=== PATIENT | female | born 1990 | race American Indian/Alaskan Native ===

== ENCOUNTER 2017-04-20 21:22 | Emergency (ER) | payer MEDICAID, OTHER ==
--- NOTE | 2017-04-20 21:57 | ED Physician Chart ---
Chief Complaint/HPI - Patient Information Date Seen:: 04/20/17 Time Seen:: 21:45 Chief Complaint:: Intermittent vaginal spotting for about one week. History of Present Illness:: female with LNMP 03/11/17. Pt had a positive test recently. Pt has noticed intermittent mild vaginal spotting for about one week. No definite pelvic pain or cramp. Pt came in by private auto and appears to be comfortable. No fever. Taking po well without vomiting. ?transient nausea. No lightheadedness. No vomiting. Allergies:: Allergies Allergy/AdvReac Type Severity Reaction Status Date / Time amoxicillin Allergy Verified 04/20/17 21:26 cephalexin Allergy Verified 04/20/17 21:26 Latex, Natural Rubber Allergy Verified 04/20/17 21:26 Vitals:: Vital Signs - 8 hr 04/20/17 21:27 Temp 99.2 F HR 78 RR 18 BP 114/71 O2 Sat % 100 Historian:: Patient Family MD/PCP:: Dr. Mesa LMP:: 03/11/17 Review:: Nurse's Note Reviewed Review of Systems - Review of Systems General/Constitutional: No fever, No chills, No weight loss, No weakness, No diaphoresis, No edema, No loss of appetite Skin: No skin lesions, No rash, No bruising Head: No headache, No light-headedness Eyes: No loss of vision, No pain, No diplopia ENT: No earache, No nasal drainage, No tinnitus Neck: No neck pain, No swelling, No stiffness, No mass noted Cardio Vascular: No chest pain, No palpitations, No edema Pulmonary: No SOB, No cough, No wheezing GI: Nausea (transient), No vomiting, No pain, No melena, No hematochezia, No hematemesis G/U: No dysuria, No frequency, No hematuria 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 Surgical History: other (L oophorectomy at . L breast cyst removal at age 17.Tonsillectomy at age 3.) Psychiatricy History: None Medication: Reviewed Family Medical History - Family Member Mother History Unknown: Yes Ethnicity: Living Status: Still Living Hx Family Hypertension: Yes Hx Family Stroke: Yes Hx Family Diabetes: Yes Physical Exam - Physical Examination General/Constitutional: Awake, Well-developed, well-nourished, Alert, No distress, GCS 15, Non-toxic appearing, Ambulatory Other Gen/Cons comments:: Breathes comfortably, speaks clearly, interacts normally, and ambulates without difficulty. Head: Atraumatic Eyes: Lids, conjuctiva normal, PERRL, EOMI Skin: Nl inspection, No rash, No skin lesions, No ecchymosis, Well hydrated, No lymphadenopathy ENMT: External ears, nose nl, TM canals nl, Nasal exam nl, Oropharynx nl Neck: Nontender, Full ROM w/o pain, No JVD, No nuchal rigidity, No mass, No stridor Respiratory: Nl effort/Exclusion, Clear to Auscultation, No Wheeze/Rhonchi/Rales Cardio Vascular: RRR, No murmur, gallop, rubs GI: No tenderness/rebounding/guarding, No organomegaly, No hernia, Normal BS's, Nondistended, No mass/bruits, No McBurney tenderness Other GI comments:: Abdomen is soft. : No CVA tenderness Other comments:: Pelvic exam: deferred per pt's request. Extremities: No tenderness or effusion, Full ROM, normal strength in all extremities, No edema, Normal digits & nails Other Extremities comments:: No calf tenderness or swelling. No erythema. Neuro/Psych: Alert/oriented (oriented x 3), Judgement/insight normal, Mood normal, Normal gait, No focal deficits Labs/Radiology/EKG Results - Lab Results Results: Laboratory Results - last 24 hr 04/20/17 04/20/17 04/20/17 21:35 22:20 22:20 WBC 6.3 RBC 4.52 Hgb 13.3 Hct 39.4 MCV 87.3 MCH 29.5 MCHC Differential 33.8 RDW 12.5 Plt Count 213 MPV 9.6 Neutrophils % 56.6 Lymphocytes % 35.7 Monocytes % 5.4 Eosinophils % 1.9 Basophils % 0.4 PT 10.3 INR 0.99 PTT (Actin FS) 23.4 L Sodium Potassium Chloride Carbon Dioxide Anion Gap BUN Creatinine Est GFR ( Amer) Est GFR (Non-Af Amer) BUN/Creatinine Ratio Glucose Calcium Total Bilirubin AST ALT Alkaline Phosphatase Total Protein Albumin Globulin Albumin/Globulin Ratio Beta HCG, Quant Urine Source [place] Urine Color YELLOW Urine Clarity CLEAR Urine pH 6.5 Ur Specific [place] 1.020 Urine Protein NEGATIVE Urine Glucose (UA) NEGATIVE Urine Ketones NEGATIVE Urine Blood SMALL H Urine Nitrate NEGATIVE Urine Bilirubin NEGATIVE Urine Urobilinogen 1.0 Ur Leukocyte Esterase NEGATIVE Urine RBC 0-2 Urine WBC 0-2 Ur Epithelial Cells MODERATE Urine Bacteria FEW Blood Type Antibody Screen 04/20/17 04/20/17 04/20/17 22:20 22:20 22:20 WBC RBC Hgb Hct MCV MCH MCHC Differential RDW Plt Count MPV Neutrophils % Lymphocytes % Monocytes % Eosinophils % Basophils % PT INR PTT (Actin FS) Sodium 137 Potassium 4.0 Chloride 108 H Carbon Dioxide 26.7 Anion Gap 6.3 L BUN 21 Creatinine 0.9 Est GFR ( Amer) > 60.0 Est GFR (Non-Af Amer) > 60.0 BUN/Creatinine Ratio 23.3 Glucose 90 Calcium 9.4 Total Bilirubin 0.3 AST 12 L ALT 10 Alkaline Phosphatase 60 Total Protein 6.8 Albumin 4.4 Globulin 2.4 Albumin/Globulin Ratio 1.8 Beta HCG, Quant < 1 Urine Source Urine Color Urine Clarity Urine pH Ur Specific [place] Urine Protein Urine Glucose (UA) Urine Ketones Urine Blood Urine Nitrate Urine Bilirubin Urine Urobilinogen Ur Leukocyte Esterase Urine RBC Urine WBC Ur Epithelial Cells Urine Bacteria Blood Type A NEGATIVE Antibody Screen NEGATIVE - Radiology Results Results: Pelvic sonogram (Preliminary report): R and L ovary not seen. L ovary removed. R ovary not seen. R and L adnexa with no ectopic gestation. ED Septic Shock - . Is Septic Shock (SBP<90, OR Lactate>4 mmol\L) present?: No - <6hrs of presentation: Vital Signs: Vital Signs - 8 hr 04/20/17 21:27 Temp 99.2 F HR 78 RR 18 BP 114/71 O2 Sat % 100 Reassessment (Disposition) - Reassessment Reassessment:: 1205 Pt remains stable. No new findings. 0225 Pt has been stable. No vaginal bleeding. No pelvic or abdominal pain. Pt has been ambulatory without difficulty. Preliminary report on pelvic sonogram just became available. Lab and sonographic findings have been reviewed with pt. Pt requests to go home now and does not want further observation/management in hospital. Aftercare instructions have been given. Reassessment Condition:: Improved - Diagnosis Diagnosis:: Recent vaginal spotting by hx, stable and currently asymptomatic. Doubt missed . - Aftercare/Follow up Instructions Aftercare/Follow-Up Instructions:: Refer to Discharge Instructions Notes:: Bedrest today. No sexual intercourse until further physician direction. F/U with PCP Dr. Mesa as well as [facility] physician referred by PCP Dr. Mesa tomorrow to follow on final sonographic report and further evaluation/ treatment. Return to ER immediately if condition worsens or if any further questions/problems. Medication Prescribed:: None - Patient Disposition Discharge/Transfer:: Home Time:: 02:40 Condition at Disposition:: Stable, Improved
[2017-04-20 22:27] LABS: % BASOPHILS 0.4 % (0.0-2.0); % EOSINOPHILS 1.9 % (0.0-5.0); % LYMPHOCYTES 35.7 % (20.0-50.0); % MONOCYTES 5.4 % (2.0-10.0); % NEUTROPHILS 56.6 % (40.0-80.0); HEMATOCRIT 39.4 % (35.0-45.0); HEMOGLOBIN 13.3 gm/dL (11.7-15.5); MEAN CELL VOLUME 87.3 fl (81-100); MEAN CORPUSCULAR HEMOGLOBIN 29.5 pg (27.0-31.0); MEAN CORPUSCULAR HGB CONC 33.8 pg (28.0-36.0); MEAN PLATELET VOLUME 9.6 fl; NEUTROPHILE ABSOLUTE 3.7 Th/cmm (1.8-8.0); PLATELET COUNT 213 Th/cmm (150-400); RED BLOOD COUNT 4.52 Mil/cmm (3.80-5.10); RED CELL DISTRIBUTION WIDTH 12.5 % (11.5-20.0); WHITE BLOOD COUNT 6.3 Th/cmm (4.8-10.8)
[2017-04-20 22:44] LABS: INR 0.99 (0.5-1.4); PROTHROMBIN TIME (TEST) 10.3 SECONDS (9.5-11.5)
[2017-04-20 22:45] LABS: ALB/GLOB RATIO 1.8 (1.0-1.8); ALKALINE PHOSPHATASE 60 U/L (34-104); ANION GAP 6.3 (7.0-16.0); BILIRUBIN,TOTAL 0.3 mg/dL (0.3-1.0); BUN - UREA NITROGEN 21 mg/dL (7-25); BUN/CREATININE RATIO 23.3; CALCIUM SERUM 9.4 mg/dL (8.6-10.3); CARBON DIOXIDE 26.7 mEq/L (21.0-31.0); CHLORIDE 108 mEq/L (98-107); CREATININE - SERUM 0.9 mg/dL (0.6-1.2); GLUCOSE 90 mg/dL (70-105); SGOT 12 U/L (13-39); SGPT/ALT 10 U/L (7-52); SODIUM SERUM 137 mEq/L (136-145)
[2017-04-20 23:03] LABS: URINE BILIRUBIN NEGATIVE (NEGATIVE); URINE BLOOD SMALL (NEGATIVE); URINE COLOR YELLOW; URINE GLUCOSE (UA) NEGATIVE (NEGATIVE); URINE KETONE NEGATIVE (NEGATIVE); URINE PH 6.5; URINE PROTEIN NEGATIVE (NEGATIVE)
[2017-04-20 23:04] LABS: URINE BACTERIA FEW /hpf (NONE SEEN); URINE EPITHELIAL CELLS MODERATE /lpf (FEW); URINE RBC 0-2 /hpf (0-5); URINE WBC 0-2 /hpf (0-5)
--- NOTE | 2017-04-21 10:18 | Diagnostic Imaging Report ---
Pelvic ultrasound HISTORY: Pain, positive test The exam is limited to transabdominal sonographic technique. There is a normal uterine size (9.3 x 5.5 x 6.1 cm). No focal myometrial lesions are seen. The endometrium is prominent (10.0 mm). No intrauterine gestation is seen. The ovaries are not identified. No abnormal masses. No abnormal fluid collections. IMPRESSION: 1. Prominent endometrium (10.0 mm). The findings should be correlated with the menstrual status. 2. No intrauterine gestation In the presence of a positive test, ectopic gestation must be excluded.
== END 2017-04-21 02:41 | disposition home or self-care (01) ==
LOC: ER 21:22
DX: O46.90 Antepartum hemorrhage, unspecified, unspecified trimester (principal); J45.909 Unspecified asthma, uncomplicated; J44.9 Chronic obstructive pulmonary disease, unspecified; Z3A.00 Weeks of gestation of pregnancy not specified; Z88.1 Allergy status to other antibiotic agents; Z91.040 Latex allergy status; Z91.09 Other allergy status, other than to drugs and biological substances; Z86.718 Personal history of other venous thrombosis and embolism
CPT/HCPCS: 36415-UA; 76801-TC; 80053-TC; 81001-TC; 84702-TC; 85025-TC; 85610-TC; 86850-TC; 86900-TC; 86901-TC